=== PATIENT | female | born 1955 | race Caucasian/White ===

== ENCOUNTER 2024-01-08 20:01 | Inpatient (IN) | payer OTHER ==
[2024-01-08] MEDS ORDERED: predniSONE 20 MG TAB ONE (20:27)
[2024-01-08] MEDS ORDERED: ONDANSETRON 4 MG (ODT) TAB ONE (20:27)
[2024-01-08 20:47] LABS: Absolute Basophils 0.1 K/uL (0-0.5); Absolute Eosinophils 0.2 K/uL (0-0.5); Absolute Lymphocytes (CBC) 1.1 K/uL (0.7-4.9); Absolute Monocytes 0.5 K/uL (0.1-1.3); Absolute Neutrophil 7.1 K/uL (1.8-8.0); Basophils % 0.6 % (0-1.3); Eosinophils % 1.8 % (0-4.4); Hematocrit 41.9 % (36.0-45.0); Lymphocytes % 11.9 % (15.3-44.8); MCHC 33.3 g/dL (32.0-36.0); MCV 87.2 fL (80-100); MPV 7.3 fL (7.6-11.3); Monocytes % 5.7 % (3.3-12.3); Platelets 247 thou/uL (152-406); Red Cell Distribution Width 13.6 % (12.1-15.2)
[2024-01-08 21:14] LABS: Albumin/Globulin Ratio 1.3 (1.1-1.8); Anion Gap 8.2 mEq/L (5.0-15.0); Bilirubin Direct 0.2 mg/dL (0-0.2); Bilirubin Indirect, Calculated 0.1 mg/dL (0.2-0.8); Bilirubin Total 0.3 mg/dL (0.2-1.0); Globulin 3.2 g/dL (2.3-3.5); Magnesium 2.1 mg/dL (1.6-2.4); Potassium 4.2 mEq/L (3.5-5.1); Protein, Total 7.2 g/dL (6.4-8.2)
--- NOTE | 2024-01-08 21:16 | RAD REPORT ---
EXAM DESCRIPTION: RAD - Chest Single View - 01/08/2024 9:04 pm CLINICAL HISTORY: DYSPNEA COMPARISON: No comparisons FINDINGS: Lines: None. Lungs: No evidence of edema or pneumonia. Hyperinflated lungs . Pleural: No significant pleural effusions or pneumothorax. Cardiac: The heart size is within normal limits. Mediastinum: Within normal limits. Bones: No acute fractures. Other: Prominence of the ascending thoracic aorta likely from some ectasia . IMPRESSION: No acute cardiopulmonary disease. Hyperinflated lungs.
[2024-01-08 21:27] LABS: Troponin High Sensitivity 158.9 pg/mL (<58.9)
--- NOTE | 2024-01-08 22:02 | EDPHYS ---
Physician Documentation [facility] Name: Emilia Dominguez Age: 68 yrs Sex: Female : 1955 Arrival Date: 01/08/2024 Time: 20:01 Bed 6 Private MD: ED Physician Sergo Sánchez HPI: 01/07 21:21 This 68 yrs old Female presents to ER via EMS with complaints of Asthma Exacerbation. rt 21:21 Patient with history of asthma presents to the ED with reported asthma exacerbation rt starting this evening. The patient states that it caused her A panic attack. Patient did receive an albuterol treatment by EMS which she states has significantly improved her symptoms. Denies chest pain. Denies other acute complaints this time, symptoms are moderate in severity, no other aggravating or elevating factors.. Historical: - Allergies: 20:10 Levaquin; jm12 - PMHx: 20:10 Asthma; Anxiety; jm12 - PSHx: 20:10 None; jm12 - Immunization history:: Adult Immunizations up to date. - Infectious Disease History:: Denies. - Social history:: Smoking status: Patient denies any tobacco usage or history of. - Family history:: not pertinent. ROS: 21:21 Constitutional: Negative for fever, chills, and weight loss, Cardiovascular: Negative rt for chest pain, palpitations, and edema, Abdomen/GI: Negative for abdominal pain, nausea, vomiting, diarrhea, and constipation, MS/Extremity: Negative for injury and deformity, Skin: Negative for injury, rash, and discoloration, Neuro: Negative for headache, weakness, numbness, tingling, and seizure, 21:21 Respiratory: Positive for cough, shortness of breath, wheezing, Exam: 21:21 Constitutional: This is a well developed, well nourished patient who is awake, alert, rt and in no acute distress. Head/Face: Normocephalic, atraumatic. Chest/axilla: Normal chest wall appearance and motion. Nontender with no deformity. No lesions are appreciated. Cardiovascular: Regular rate and rhythm with a normal S1 and S2. No gallops, murmurs, or rubs. Normal PMI, no JVD. No pulse deficits. Abdomen/GI: Soft, non-tender, with normal bowel sounds. No distension or tympany. No guarding or rebound. No evidence of tenderness throughout. Skin: Warm, dry with normal turgor. Normal color with no rashes, no lesions, and no evidence of cellulitis. MS/ Extremity: Pulses equal, no cyanosis. Neurovascular intact. Full, normal range of motion. Neuro: Awake and alert, GCS 15, oriented to person, place, time, and situation. Cranial nerves II-XII grossly intact. Motor strength 5/5 in all extremities. Sensory grossly intact. Cerebellar exam normal. Normal gait. 21:21 ECG was reviewed by the Attending Physician. 21:21 Respiratory: Faint wheezes heard on all lung curran, no respiratory distress, Vital Signs: 20:09 BP 141 / 78; Pulse 76; Resp 18; Temp 98.2; Pulse Ox 100% ; Weight 40.37 kg; Height 5 jm12 ft. 6 in. ; Pain 0/10; 21:27 BP 119 / 63; Pulse 77; Resp 16; Pulse Ox 91% ; 12 22:07 BP 119 / 81; Pulse 76; Resp 18; Temp 98.2; Pulse Ox 95% ; 12 20:09 Body Mass Index 14.36 (40.37 kg, 167.64 cm) [facility] 20:09 Pain Scale: Adult 12 MDM: 20:14 Patient medically screened. rt 22:23 Differential diagnosis: Asthma, pneumonia, bronchospasm, ACS. Data reviewed: vital rt signs, nurses notes, lab test result(s), EKG, radiologic studies. Consideration of Admission/Observation Patient was admitted/placed on observation. Management of patient was discussed with the following: Hospitalist: Agrees to admit. I considered the following discharge prescriptions or medication management in the emergency department Medications were administered in the Emergency Department. See MAR. Independent interpretation of the following test(s) in the Emergency Department X-Ray: My interpretation is No pneumonia seen on interpretation of x-ray images. Test considered but Not performed: CT: Do not suspect pulmonary embolism, CT angiogram not indicated. Care significantly affected by the following chronic conditions: Asthma. Counseling: I had a detailed discussion with the patient and/or guardian regarding the historical points, exam findings, and any diagnostic results supporting the discharge/admit diagnosis, lab results, radiology results, the need for further work-up and treatment in the hospital. Response to treatment: the patient's symptoms have markedly improved after treatment. 01/07 20:21 Order name: Basic Metabolic Panel; Complete Time: : rt 01/07 20:21 Order name: CBC with Diff; Complete Time: : rt 01/07 20:21 Order name: LFT's; Complete Time: :28 rt 01/07 20:21 Order name: Magnesium; Complete Time: :28 rt 01/07 20:21 Order name: NT PRO-BNP; Complete Time: : rt 01/07 20:21 Order name: Troponin HS; Complete Time: : rt 01/08 04:47 Order name: Troponin High Sensitivity; Complete Time: 06:27 EDMS 01/08 05:40 Order name: Lipid Profile; Complete Time: 06: EDMS 01/08 06:10 Order name: Hemoglobin A1c; Complete Time: : EDMS 01/07 20:21 Order name: XRAY Chest (1 view); Complete Time: 21: rt 01/07 20:21 Order name: Cardiac monitoring; Complete Time: 20: rt 01/07 20:21 Order name: EKG - Nurse/Tech; Complete Time: 20:32 rt 01/07 20:21 Order name: IV Saline Lock; Complete Time: 21:00 rt 01/07 20:21 Order name: Labs collected and sent; Complete Time: 21:00 rt 01/07 20:21 Order name: O2 Per Protocol; Complete Time: 20: rt 01/07 20:21 Order name: O2 Sat Monitoring; Complete Time: 20:22 rt EC: Rate is 81 beats/min. Rhythm is regular, Normal Sinus Rhythm with No ectopy, LVH. Left rt axis deviation noted. LA interval is normal. QRS interval is normal. QT interval is normal. No Q waves. T waves are Normal. No ST changes noted. Interpreted by me. Administered Medications: 20:32 Drug: predniSONE PO 40 mg PO once Route: PO; tm6 20:32 Drug: Ondansetron Oral Disintegrating Tablet Oral Disintegrating Tablet 4 mg PO once tm6 Route: PO; 22:18 Drug: Aspirin PO 325 mg PO once Route: PO; tm6 22:18 Drug: Enoxaparin Sub-Q 1 mg/kg Sub-Q once Route: Sub-Q; Site: right lower abdomen; tm6 Disposition: 22:23 Critical Care:. rt Disposition Summary: 01/08/24 22:01 Hospitalization Ordered Notes: Hospitalization Status: Observation rt Provider: Prince Zoey rt Condition: Stable rt Problem: new rt Symptoms: have improved rt Bed/Room Type: Standard rt Location: Telemetry/MedSurg (observation)(01/09/24 07:14) jaDeja Room Assignment: 228(01/09/24 07:14) ja Diagnosis - Dyspnea rt - elevated troponin rt Forms: - Medication Reconciliation Form rt - SBAR form rt - Leadership Thank You Letter rt Critical care time excluding procedures: 22:23 Critical care time: Bedside Care: 30 minutes, Consultation: 5 minutes. Total time: 35 rt minutes Signatures: Dispatcher [employer] EDMS Anais Stuart Cindy, GILBERTO MACIAS cg Teddy Castellon RN RN ja1 Sergo Sánchez MD MD rt Dangelo Freeman RN RN tm6 Maureen Chaudhry RN RN jm12 Corrections: (The following items were deleted from the chart) 20:22 20:22 Chest Single View+RAD.RAD.BRZ ordered. EDMS EDMS 22:02 22:01 rt sp 22:39 22:02 221 sp cg 22:46 22:01 Telemetry/MedSurg (observation) rt cg 22:46 22:39 cg cg 01/08 07:14 01/07 22:46 [facility] ER HOLD cg ja1 01/08 07:14 01/07 22:46 ERHOLD- cg ja1
--- NOTE | 2024-01-08 22:02 | ER ---
Nurse's Notes [facility] Name: Emilia Dominguez Age: 68 yrs Sex: Female : 1955 Arrival Date: 01/08/2024 Time: 20:01 Bed 6 Private MD: Diagnosis: Dyspnea;elevated troponin Presentation: 01/07 20:09 Chief complaint: Patient states: shortness of breath. Coronavirus screen: Client denies [facility] travel out of the [place] in the last 14 days. At this time, the client does not indicate any symptoms associated with coronavirus-19. Ebola Screen: No symptoms or risks identified at this time. Initial Sepsis Screen: Does the patient meet any 2 criteria? No. Patient's initial sepsis screen is negative. Does the patient have a suspected source of infection? No. Patient's initial sepsis screen is negative. Risk Assessment: Do you want to hurt yourself or someone else? Patient reports no desire to harm self or others. Onset of symptoms was January 08, 2024. 20:09 Method Of Arrival: EMS: [facility] 20:09 Acuity: [place] 3 [facility] Triage Assessment: 20:10 General: Appears distressed, Behavior is calm, cooperative. Pain: Denies pain. [facility] Historical: - Allergies: 20:10 Levaquin; 12 - PMHx: 20:10 Asthma; Anxiety; [facility] - PSHx: 20:10 None; jm12 - Immunization history:: Adult Immunizations up to date. - Infectious Disease History:: Denies. - Social history:: Smoking status: Patient denies any tobacco usage or history of. - Family history:: not pertinent. Screenin/22 00:03 [facility] ED Fall Risk Assessment (Adult) History of falling in the last 3 months, tm6 including since admission No falls in past 3 months (0 pts) Confusion or Disorientation No (0 pts) Intoxicated or Sedated No (0 pts) Impaired Gait No (0 pts) Mobility Assist Device Used No (0 pt) Altered Elimination No (0 pt) Score/Fall Risk Level 0 - 2 = Low Risk Oriented to surroundings, Maintained a safe environment, Educated pt \T\ family on fall prevention, incl call for assistance when getting out of bed. Abuse screen: Denies threats or abuse. Denies injuries from another. Nutritional screening: No deficits noted. Tuberculosis screening: No symptoms or risk factors identified. Assessment: 01/07 20:12 Neuro: No deficits noted. Cardiovascular: No deficits noted. Respiratory: Respiratory [facility] effort is labored, using tripod position, Respiratory pattern is Breath sounds with wheezes bilaterally. Onset: The symptoms/episode began/occurred the patient has moderate shortness of breath. Vital Signs: 20:09 BP 141 / 78; Pulse 76; Resp 18; Temp 98.2; Pulse Ox 100% ; Weight 40.37 kg; Height 5 12 ft. 6 in. ; Pain 0/10; 21:27 BP 119 / 63; Pulse 77; Resp 16; Pulse Ox 91% ; jm12 22:07 BP 119 / 81; Pulse 76; Resp 18; Temp 98.2; Pulse Ox 95% ; 12 20:09 Body Mass Index 14.36 (40.37 kg, 167.64 cm) 12 20:09 Pain Scale: Adult [facility] ED Course: 20:08 Patient arrived in ED. jm12 20:09 Sergo Sánchez MD is Attending Physician. rt 20:10 Triage completed. jm12 20:12 No provider procedures requiring assistance completed. tm6 20:12 Patient has correct armband on for positive identification. Placed in gown. Bed in low tm6 position. Call light in reach. Side rails up X 1. Provided Education on: use of call morales. Client placed on continuous cardiac and pulse oximetry monitoring. NIBP monitoring applied. instruction assistant principal on. Pulse ox on. NIBP on. Door closed. Noise minimized. Warm blanket given. 20:12 Arm band placed on right wrist. tm6 20:31 Dangelo Freeman, GILBERTO is Primary Nurse. tm6 20:32 EKG done, by ED staff, reviewed by Sergo Sánchez MD. tm6 20:44 Inserted saline lock: 20 gauge in left antecubital area, using aseptic technique. Blood kj2 collected. 21:06 XRAY Chest (1 view) In Process Unspecified. EDMS 22:00 Prince Greer MD is Hospitalizing Provider. rt 01/08 00:05 Patient admitted, IV remains in place. tm6 Administered Medications: 01/07 20:32 Drug: predniSONE PO 40 mg PO once Route: PO; tm6 20:32 Drug: Ondansetron Oral Disintegrating Tablet Oral Disintegrating Tablet 4 mg PO once tm6 Route: PO; 22:18 Drug: Aspirin PO 325 mg PO once Route: PO; tm6 22:18 Drug: Enoxaparin Sub-Q 1 mg/kg Sub-Q once Route: Sub-Q; Site: right lower abdomen; tm6 Medication: 01/08 00:05 VIS not applicable for this client. tm6 Outcome: 01/07 22:01 Decision to Hospitalize by Provider. rt 01/08 00:04 Admitted to ER Hold. Please see [facility] for further documentation. tm6 Condition: stable Instructed on the need for admit, 09:00 Patient left the ED. ko1 Signatures: Dispatcher [employer] EDMS Tamara Hernandez RN RN ko1 Sergo Sánchez MD MD rt Dangelo Freeman RN RN tm6 Tricia Burgos RN RN kj2 Maureen Chaudhry RN RN jm12
[2024-01-08] MEDS ORDERED: ASPIRIN EC 325 MG TABLET PO ONE (22:12)
[2024-01-08] MEDS ORDERED: ENOXAPARIN 40 MG/0.4 ML SQ ONE (22:12)
--- NOTE | 2024-01-08 22:20 | P.HP ---
Certification for Inpatient Patient admitted to: Observation With expected LOS: <2 Midnights Practitioner: I am a practitioner with admitting privileges, knowledge of patient current condition, hospital course, and medical plan of care. Services: Services provided to patient in accordance with Admission requirements found in Title 42 Section 412.3 of the Code of Federal Regulations Patient History Date of Service: 01/08/24 Reason for admission: dyspnea History of Present Illness: Marta is a 68-year-old female with a past medical history of anxiety and lack of smoking. She presented to the ER complaining of acutely worsening dyspnea. Patient lives in the [facility] and is currently living locally with son after sustaining an ankle fracture earlier last month. She feels that her fracture has been healing well. She has a history of occasional shortness of breath, which she feels is a result of anxiety. The symptoms, however, were slightly different. Workup in ER revealed negative chest x-ray. Troponin was elevated at 158. At the time of my evaluation, she was on supplemental oxygen and speaking without respiratory distress. Physical Examination - Physical Exam General: Alert HEENT: Atraumatic, Normocephalic Neck: Supple Respiratory: Clear to auscultation bilaterally Cardiovascular: No edema, Normal pulses, Regular rate/rhythm, Normal S1 S2 Neurological: Normal speech, Sensation intact - Studies Laboratory Data (last 24 hrs) 01/08/24 01/08/24 20:40 20:40 WBC 8.90 Hgb 14.0 Hct 41.9 Plt Count 247 Sodium 135 L Potassium 4.2 BUN 18 Creatinine 0.77 Glucose 106 Magnesium 2.1 Total Bilirubin 0.3 AST 25 ALT 24 Alkaline Phosphatase 102 Assessment and Plan - Problems (Diagnosis) (1) Acute hypoxemic respiratory failure Current Visit: Yes Status: Acute (2) NSTEMI (non-ST elevated myocardial infarction) Current Visit: Yes Status: Acute (3) Anxiety Current Visit: Yes Status: Acute - Plan Asthma Patient 68-year-old female with a past medical history of tobacco smoking and, asthma and anxiety. She is being admitted after she presented with acute shortness of breath. Her chest x-ray is negative. She has elevated troponin 158. Acute hypoxemic respiratory failure Asthma, possibly exacerbation NSTEMI Tobacco smoking Anxiety PLAN: Admit under observation with telemetry Possible asthma exacerbation. Solu-Medrol, DuoNeb and Dulera Elevated troponin. Started FD loveox, obtain a 2D echo, lipid panel and HbA1c. Non-urgent cardiology consult. Trend trop CTA chest to r/o PE given hx of recent fracture. - Advance Directives Does patient have a Living Will: No Does patient have a Durable POA for Healthcare: No
[2024-01-08] MEDS: METHYLPREDNISOLONE 40 MG INJ IV SCH (23:00)
[2024-01-08] MEDS: DULERA 200/5 (MOMETASONE/FORMOTEROL) INHALER IH SCH (23:30)
[2024-01-09] MEDS ORDERED: ALBUTEROL 2.5 MG/3 ML NEB SOL ONE ×2 (01:27→07:12)
[2024-01-09] MEDS ORDERED: IPRATROPIUM BROM 0.5MG/2.5ML ONE ×2 (01:27→07:12)
[2024-01-09] MEDS: IPRATROPIUM BROM 0.5MG/2.5ML NEB SCH (01:30)
[2024-01-09] MEDS: ALBUTEROL 2.5 MG/3 ML NEB SOL NEB SCH (01:30)
[2024-01-09] MEDS ORDERED: METHYLPREDNISOLONE 40 MG INJ ONE ×2 (02:46→08:38)
[2024-01-09] MEDS: clonazePAM 0.5 MG TAB PO SCH ×2 (04:24→22:11)
[2024-01-09] MEDS ORDERED: ALBUTEROL INHALER 200 PUFF/6.7 GM IH SCH (04:30)
[2024-01-09 04:47] LABS: Troponin High Sensitivity 817.3 pg/mL (<58.9)
--- NOTE | 2024-01-09 06:52 | P.PN ---
Date of Service: 01/09/24 Subjective: Reports shortness of breath last night, improving Denies active chest pain this morning Reports history of asthma, smoking history Has never been diagnosed with COPD, never had pulmonary function test per patient Reports long history of of anxiety/panic attacks, and states this is hard to differentiate between her "asthma" versus panic attack Patient seen while undergoing echocardiogram ROS: 10 point ROS as noted above, otherwise negative Physical Exam: GEN: Alert, oriented, NAD HEENT: Normal conjunctiva, sclera anicteric CV: Regular rate and rhythm, no edema Pulm: Nonlabored respirations on room air, mild wheeze ABD: Soft, nontender, nondistended Neuro: Normal speech, normal affect vitals reviewed Problem List: Acute hypoxemic respiratory failure likely secondary to acute on chronic COPD exacerbation NSTEMI Anxiety tobacco dependance Acute hypoxemic respiratory failure likely secondary to acute on chronic COPD exacerbation Reports history of asthma. Never had pulmonary function testing CT with emphysematous appearance felt significant improvement of her breathing with albuterol per EMS. Placed on supplementation oxygen in ED, now breathing more comfortably on room air. But has not ambulated CTA chest (01/07): moderate diffuse centrilobular emphysema with hyperinflation. +Scattered nonocclusive secretions in central/peripheral airways. No focal inf iltrate. continue solu-medrol, duonebs Consult pulmonology NSTEMI trend troponins until peak - 158 -> 817 Monitor on telemetry Cardiology consulted Echo ordered to eval EF / stenosis NPO for LHC today per cardio start asa Anxiety confirm home meds, restart as appropriate klonopin PRN tobacco dependance cessation advised. VTE: Lovenox Code: DNR Dispo: Home, ~1 day Pending cardiac cath / recs Time Spent Managing Pts Care (In Minutes): 40
[2024-01-09] MEDS: FLUOXETINE 20 MG CAP PO SCH (09:14)
[2024-01-09] MEDS: CETIRIZINE HCL 5 MG TABLET PO SCH (09:14)
[2024-01-09] MEDS: ENOXAPARIN 40 MG/0.4 ML SQ SCH (09:14)
--- NOTE | 2024-01-09 10:23 | P.CNS ---
Date of Consult: 01/09/24 Chief Complaint: dyspnea History of Present Illness: Patient with PMH of Asthma, tobacco use, panic attacks, presented with with bad panic attack yesterday that was associated with chest pressure and SOB, chest pain is pressure in nature, mid chest, no radiation, last for few minutes has been going on for few months. no palpitations, no syncope. Allergies levofloxacin [From Levaquin] Allergy (Verified 01/08/24 23:13) Itching Home Medications: Albuterol Inhaler [Ventolin Inhaler*] 1 puff PRN 01/09/24 Cetirizine HCl [Zyrtec] 1 tab PO DAILY 01/09/24 Fluoxetine HCl [Prozac] 1 tab PO DAILY 01/09/24 clonazePAM [Klonopin] 1 tab PO PRN PRN 01/09/24 - Social History Place of Residence: Home Review of Systems 10-point ROS is otherwise unremarkable Physical Examination Temp Pulse Resp BP Pulse Ox 98.3 F 89 14 122/59 L 96 01/09/24 09:05 01/09/24 09:05 01/09/24 09:05 01/09/24 09:05 01/09/24 09:05 General: Alert, In no apparent distress HEENT: Atraumatic, PERRLA, Mucous membr. moist/pink, EOMI, Sclerae nonicteric Neck: Supple, 2+ carotid pulse no bruit, No LAD, Without JVD or thyroid abnormality Respiratory: Clear to auscultation bilaterally, Normal air movement Cardiovascular: Regular rate/rhythm, Normal S1 S2 Gastrointestinal: Normal bowel sounds, No tenderness Musculoskeletal: No tenderness Integumentary: No rashes Neurological: Normal gait, Normal speech, Normal tone, Normal affect Lymphatics: No axilla or inguinal lymphadenopathy Laboratory Data (last 24 hrs) 01/08/24 01/08/24 20:40 20:40 WBC 8.90 Hgb 14.0 Hct 41.9 Plt Count 247 Sodium 135 L Potassium 4.2 BUN 18 Creatinine 0.77 Glucose 106 Magnesium 2.1 Total Bilirubin 0.3 AST 25 ALT 24 Alkaline Phosphatase 102 - Problems (1) NSTEMI (non-ST elevated myocardial infarction) Current Visit: Yes Status: Acute Plan: will get coronary angiogram today. get echo continue ASA 81 mg daily (2) Tobacco abuse Current Visit: Yes Status: Acute Plan: counseled about cessation (3) Asthma Current Visit: Yes Status: Acute Plan: continue steroids and inhalers.
[2024-01-09 12:27] LABS: Troponin High Sensitivity 550.7 pg/mL (<58.9)
--- NOTE | 2024-01-09 12:39 | RAD REPORT ---
EXAM DESCRIPTION: CT - Chest For Pe Angio - 01/09/2024 7:30 am CLINICAL HISTORY: 68 years Female r/o pe TECHNIQUE: Contiguous axial images obtained through the chest were obtained from the thoracic inlet to the level of the upper abdomen during the pulmonary arterial phase of intravenous contrast adminis tration. Coronal and sagittal reformatted and multiplanar MIP images provided. This CT exam was performed according to our departmental dose-optimization program, which includes on e or more of the following dose reduction techniques: automated exposure control, adjustment of the m A and/or kV according to patient size, and/or use of iterative reconstruction technique. COMPARISON: Chest radiograph dated 06/06/2019 FINDINGS: There is no pulmonary embolus. There is atherosclerosis without thoracic aortic aneurysm or dissection. The heart is normal in size without pericardial effusion. There is moderate diffuse centrilobular emphysema throughout both lungs with hyperinflation. No focal airspace infiltrate, pleural effusion, or pneumothorax. Scattered nonocclusive secretions in the dae tral and peripheral airways. There are no visualized acute osseous or upper abdominal abnormalities. Patient is cachectic. IMPRESSION: No pulmonary embolus. Moderate diffuse centrilobular emphysema with hyperinflation. Scattered nonocclusive secretions in th e central and peripheral airways. No focal airspace infiltrate. Electronically signed by: Lu Bailey MD 01/08/2024 11:51 PM CDT RP Due to temporary technical issues with the PACS/Fluency reporting system, reports are being signed by the in house radiologist without review as a courtesy to ensure prompt reporting. The interpreting r adiologist is fully responsible for the content of the report.
--- NOTE | 2024-01-09 13:32 | ECHO ---
HEIGHT: 5 ft 6 in WEIGHT: 89 lb 0 oz DATE OF STUDY: 01/09/[address]: Prince Lanie Greer MD 2-DIMENSIONAL: YES M.MODE: YES DOPPLER: YES COLOR FLOW: YES TDS: PORTABLE: YES DEFINITY: BUBBLE STUDY: DIAGNOSIS: NON ST ELEVATION MYOCARDIAL INFARCTION CARDIAC HISTORY: CATHERIZATION: SURGERY: PROSTHETIC VALVE: PACEMAKER: MEASUREMENTS (cm) DIASTOLIC (NORMALS) SYSTOLIC (NORMALS) IVSd 0.9 (0.6-1.2) LA Diam (1.9-4.0) LVEF 60-65% LVIDd 3.5 (3.5-5.7) LVIDs 2.2 (2.0-3.5) %FS 37% LVPWd 0.7 (0.6-1.2) Ao Diam 2.7 (2.0-3.7) 2 DIMENSIONAL ASSESSMENT: RIGHT ATRIUM: NORMAL LEFT ATRIUM: NORMAL RIGHT VENTRICLE: NORMAL LEFT VENTRICLE: NORMAL TRICUSPID VALVE: NORMAL MITRAL VALVE: NORMAL PULMONIC VALVE: NORMAL AORTIC VALVE: MILD AORTIC REGURGITATION PERICARDIAL EFFUSION: NONE AORTIC ROOT: NORMAL LEFT VENTRICULAR WALL MOTION: NORMAL DOPPLER/COLOR FLOW: NORMAL COMMENTS: 1. NORMAL LEFT VENTRICULAR SYSTOLIC FUNCTION, EJECTION FRACTION 60-65%, NORMAL WALL MOTION 2. NORMAL DIASTOLIC FUNCTION 3. MILD AORTIC REGURGITATION TECHNOLOGIST: EZEQUIEL SANCHEZ
[2024-01-09] MEDS: NA CHLORIDE 0.9% 500 ML ONE (14:44)
[2024-01-09] MEDS ORDERED: HEPA 1000U/500MLS 2,000 UNIT/1,000 ML BAG IV ONE (15:05)
[2024-01-09] MEDS ORDERED: MIDAZOLAM HCL 2 MG/2 ML INJ ONE (15:06)
[2024-01-09] MEDS ORDERED: LIDOCAINE 1% 20 ML MDV ONE (15:06)
[2024-01-09] MEDS ORDERED: VERAPAMIL HCL 10 MG/4 ML VIAL IV ONE (15:06)
[2024-01-09] MEDS ORDERED: HEPARIN 5000 UNIT/ML 1 ML VIAL ONE (15:07)
[2024-01-09] MEDS ORDERED: FENTANYL CITR 100 MCG/2 ML ONE (15:07)
[2024-01-09] MEDS ORDERED: HEPARIN 10,000 UNIT/10 ML VIAL IV ONE (15:07)
[2024-01-09] MEDS ORDERED: TICAGRELOR 90 MG TABLET PO ONE (15:07)
[2024-01-09] MEDS ORDERED: ATROPINE SULF 1 MG/10 ML SYR IV ONE (15:07)
[2024-01-09] MEDS ORDERED: ASPIRIN 325 MG TAB ONE (15:08)
--- NOTE | 2024-01-09 16:30 | EKG ---
Test Date: 2024-01-08 Test Time: 20:27:15 Ceo Ziff Davis: DENISE MEASUREMENT RESULTS: Intervals: Rate: 81 GA: 142 QRSD: 76 QT: 396 QTc: 460 [place]: P: -25 GA: 142 QRS: -25 T: -22 INTERPRETIVE STATEMENTS: Normal sinus rhythm Voltage criteria for left ventricular hypertrophy Abnormal ECG No previous ECG available for comparison Electronically Signed On 01-09-24 16:28:31 CDT by Ed Sims
--- NOTE | 2024-01-09 16:32 | OP ---
Date of Procedure: 01/09/2024 Surgeon: PARVEZ SAENZ Procedures Performed: 1.Selective coronary angiogram. 2.Left heart catheterization. Indication: [id number] myocardial infarction. Access: Right radial artery 6-Omani closed with TR band. Complications: None. Bleeding: Less than 50 mL. Anesthesia: Total sedation time was 30 minutes. Description Of Procedure: After risks, benefits, and alternatives were explained, the patient agreed to procedure and signed informed consent. The [facility], prepped and draped in usual sterile fashion. Then, I accessed right radial artery using pedi atric micropuncture kit, placed a 6-Omani Slender sheath and took 5-Omani [place] 4.0 catheter into t he aortic root over a J-wire across the aortic valve, measured the LVEDP. Pullback did not record an y significant gradient, and then engaged the left main, took standard views and then on the RCA, took standard views and then removed the catheter and the sheath. We placed TR band with good hemostasis . Findings: 1.Left main; large and normal. 2.LAD; large vessel. Proximal segment is normal. Mid segment focal 30%. Distally, there is a diff use 20% stenosis. Diagonal branch has luminal irregularities. 3.Left circumflex; it is large sized vessel with the proximal 40%. Rest of it is normal. 4.RCA; moderate size, has 40% in the mid to distal diffuse 50% stenosis. 5.LVEDP is normal at 10 mmHg. Conclusion: 1.Mild to moderate coronary artery disease. 2.Borderline LVEDP at 10 mmHg. Plan: Medical management. SR/MODL Voice ID: [id number] Report ID: [id number]
[2024-01-10 06:07] LABS: Absolute Lymphocytes (CBC) 0.5 K/uL (0.7-4.9); Absolute Monocytes 0.2 K/uL (0.1-1.3); Absolute Neutrophil 6.8 K/uL (1.8-8.0); Basophils % 0.1 % (0-1.3); Hematocrit 37.6 % (36.0-45.0); Hemoglobin 12.8 g/dL (12.0-15.0); MCH 29.6 pg (27.0-35.0); MCHC 33.9 g/dL (32.0-36.0); MCV 87.2 fL (80-100); MPV 7.2 fL (7.6-11.3); Monocytes % 2.5 % (3.3-12.3); Neutrophils % 90.4 % (41.7-73.7); Platelets 258 thou/uL (152-406); RBC Red Blood Cell Count 4.31 M/uL (3.86-4.86); Red Cell Distribution Width 13.5 % (12.1-15.2)
[2024-01-10 07:27] LABS: Anion Gap 7.1 mEq/L (5.0-15.0); Magnesium 2.8 mg/dL (1.6-2.4); Potassium 5.1 mEq/L (3.5-5.1)
[2024-01-10] MEDS: ONDANSETRON 4 MG/2 ML VIAL IV PRN (07:46)
[2024-01-10 08:44] LABS: Platelet Estimate ADEQ; White Blood Cell Scan OK (OK)
[2024-01-10 08:45] LABS: Blood Morphology Comment NOT SEEN (NOT SEEN)
--- NOTE | 2024-01-10 11:02 | P.DS ---
Admission Date: 01/08/24 Discharge Date: 01/10/24 Disposition: ROUTINE DISCHARGE Discharge Condition: GOOD Reason for Admission: dyspnea Brief History of Present Illness: 68-year-old female with a past medical history of anxiety and smoking presented to the ER complaining of acutely worsening dyspnea. Patient lives in the [facility] and is currently living locally with son after sustaining an ankle fracture earlier last month. She has a history of occasional shortness of breath, which she feels is a result of anxiety. The symptoms, however, were slightly different. Workup in ER revealed negative chest x-ray. Troponin was elevated at 158. At the time of my evaluation, she was on supplemental oxygen and speaking without respiratory distress. Patient was hospitalized for further management. Hospital Course: Diagnosis Acute hypoxemic respiratory failure likely secondary to acute on chronic COPD exacerbation. Anxiety tobacco dependance . Severe protein calorie malnutrition. Patient was admitted to the medical floor and the following medical problems addressed: Acute hypoxemic respiratory failure likely secondary to acute on chronic COPD exacerbation Patient reports history of asthma. Never had pulmonary function testing CT with emphysematous appearance Patient's symptoms significantly improved with steroids and bronchodilators. Initially needed oxygen supplementation. Patient was weaned off oxygen and had good oxygen saturation. Pulmonary Dr. Poe evaluated patient and assisted with management. Patient placed on long-acting beta-sina and inhaled steroid. She has clinically improved and deemed stable for discharge. NSTEMI trend troponins until peak - 158 -> 817 Monitor on telemetry Cardiology evaluated patient. Left heart catheterization done which showed mild coronary artery disease and no indication for percutaneous intervention. Echo done showed normal EF and unremarkable.. Patient started on aspirin. Anxiety klonopin PRN tobacco dependance cessation advised. Vital Signs/Physical Exam: Temp Pulse Resp BP Pulse Ox 98.3 F 71 18 134/61 92 01/10/24 08:00 01/10/24 08:00 01/10/24 08:00 01/10/24 08:00 01/10/24 08:00 General: Alert, In no apparent distress, Oriented x3, Other (Cachectic) HEENT: Mucous membr. moist/pink, Sclerae nonicteric Neck: Supple, JVD not distended Respiratory: Clear to auscultation bilaterally, Diminished (Diffuse diminished breath sounds.) Cardiovascular: No edema, Regular rate/rhythm Gastrointestinal: Normal bowel sounds, Soft and benign, Non-distended Musculoskeletal: No swelling Integumentary: No rashes, No cyanosis Neurological: Normal strength at 5/5 x4 extr Laboratory Data at Discharge: WBC 7.50 thou/uL (4.3-10.9) 01/10/24 05:44 Hgb 12.8 g/dL (12.0-15.0) 01/10/24 05:44 Hct 37.6 % (36.0-45.0) 01/10/24 05:44 Plt Count 258 thou/uL (152-406) 01/10/24 05:44 Sodium 134 mEq/L (136-145) L 01/10/24 05:44 Potassium 5.1 mEq/L (3.5-5.1) D 01/10/24 05:44 BUN 20 mg/dL (7-18) H 01/10/24 05:44 Creatinine 0.76 mg/dL (0.55-1.02) 01/10/24 05:44 Glucose 147 mg/dL (74-106) H 01/10/24 05:44 Magnesium 2.8 mg/dL (1.6-2.4) H 01/10/24 05:44 Total Bilirubin 0.3 mg/dL (0.2-1.0) 01/08/24 20:40 AST 25 U/L (15-37) 01/08/24 20:40 ALT 24 U/L (13-56) 01/08/24 20:40 Alkaline Phosphatase 102 U/L (45-117) 01/08/24 20:40 Triglycerides Cancelled 01/09/24 Unknown Cholesterol Cancelled 01/09/24 Unknown HDL Cholesterol Cancelled 01/09/24 Unknown Cholesterol/HDL Ratio Cancelled 01/09/24 Unknown Home Medications: Albuterol Inhaler [Ventolin Inhaler*] 1 puff PRN 01/09/24 Cetirizine HCl [Zyrtec] 1 tab PO DAILY 01/09/24 Fluoxetine HCl [Prozac] 1 tab PO DAILY 01/09/24 Aspirin Chewable [Aspirin Chewable*] 81 mg PO DAILY #30 tab.chew 01/10/24 Atorvastatin Calcium [Lipitor] 40 mg PO BEDTIME #30 tab 01/10/24 Mometasone/Formoterol [Dulera 200 Mcg/5 Mcg Inhaler] 2 puff IH BIDRESP #1 inhaler 07/23/24 clonazePAM [Klonopin] 1 tab PO PRN PRN #10 tab 01/10/24 predniSONE [Prednisone*] 40 mg PO DAILY #8 tab 01/10/24 New Medications: Aspirin Chewable [Aspirin Chewable*] 81 mg PO DAILY #30 tab.chew Mometasone/Formoterol [Dulera 200 Mcg/5 Mcg Inhaler] 2 puff IH BIDRESP #1 inhal er clonazePAM [Klonopin] 1 tab PO PRN PRN #10 tab PRN Reason: Anxiety Atorvastatin Calcium [Lipitor] 40 mg PO BEDTIME #30 tab predniSONE [Prednisone*] 40 mg PO DAILY #8 tab Followup: Andrea Meléndez MD [ACTIVE - CAN ADMIT] - SHIRA SILVA [Primary Care Provider] - Ed Sims MD [ACTIVE - CAN ADMIT] - 1-2 Weeks Time spent managing pt's care (in minutes): 36
--- NOTE | 2024-01-10 12:23 | P.PN ---
Subjective Date of Service: 01/10/24 Chief Complaint: dyspnea Subjective: No new changes, No C/O voiced, Tolerating diet, Ambulating, Improving Review of Systems 10-point ROS is otherwise unremarkable Physical Examination - Vital Signs Temperature: 98.3 F Blood Pressure: 134/61 Pulse: 71 Respirations: 18 Pulse Ox (%): 92 - Physical Exam General: Alert, In no apparent distress HEENT: Atraumatic, PERRLA, EOMI Neck: Supple, JVD not distended Respiratory: Clear to auscultation bilaterally, Normal air movement Cardiovascular: Regular rate/rhythm, Normal S1 S2 Gastrointestinal: Normal bowel sounds, No tenderness Musculoskeletal: No tenderness Integumentary: No rashes Neurological: Normal speech, Normal tone, Normal affect Lymphatics: No axilla or inguinal lymphadenopathy - Studies Medications List Reviewed: Yes Assessment And Plan - Current Problems (Diagnosis) (1) NSTEMI (non-ST elevated myocardial infarction) Current Visit: Yes Status: Acute Plan: coronary angiogram shows mild non obstructive CAD Echo shows normal EF continue ASA 81 mg daily (2) Tobacco abuse Current Visit: Yes Status: Acute Plan: counseled about cessation (3) Asthma Current Visit: Yes Status: Acute Plan: continue steroids and inhalers.
--- NOTE | 2024-01-10 12:51 | P.CNS ---
Date of Consult: 01/10/24 Reason for Consult: Possible underlying COPD Chief Complaint: dyspnea History of Present Illness: Patient is 68 years of age states that she has been having these panic attacks for the past 3-1/2 years where her lungs just shut down becomes very dyspneic patient is an active smoker no prior history of coronary artery disease uses albuterol at home that seems to help apparently was tried on Prozac that made her very doing much better Allergies levofloxacin [From Levaquin] Allergy (Verified 01/08/24 23:13) Itching Home Medications: Albuterol Inhaler [Ventolin Inhaler*] 1 puff PRN 01/09/24 Cetirizine HCl [Zyrtec] 1 tab PO DAILY 01/09/24 Fluoxetine HCl [Prozac] 1 tab PO DAILY 01/09/24 Aspirin Chewable [Aspirin Chewable*] 81 mg PO DAILY #30 tab.chew 01/10/24 Mometasone/Formoterol [Dulera 200 Mcg/5 Mcg Inhaler] 2 puff IH BIDRESP #1 inhaler 01/10/24 clonazePAM [Klonopin] 1 tab PO PRN PRN #10 tab 01/10/24 predniSONE [Prednisone*] 40 mg PO DAILY #8 tab 01/10/24 - Social History Place of Residence: Home Review of Systems 10-point ROS is otherwise unremarkable Physical Examination Temp Pulse Resp BP Pulse Ox 98.3 F 71 18 134/61 92 01/10/24 12:23 01/10/24 12:23 01/10/24 12:23 01/10/24 12:23 01/10/24 12:23 General: Alert, In no apparent distress, Oriented x3 Neck: Supple Respiratory: Clear to auscultation bilaterally, Diminished Cardiovascular: No edema, Regular rate/rhythm, Normal S1 S2 Gastrointestinal: Normal bowel sounds - Problems (1) COPD exacerbation Status: Acute Plan: Patient is 68 years of age I strongly suspect that she has underlying obstructive airways disease which is attributed to her anxiety and she has these attacks of shortness of breath with chest tightness. Patient does smoke 10 to 15 cigarettes a day has been doing so for a very long. Of time CT scan of the chest and chest x-ray reviewed all concerns consistent with severe obstructive pattern patient to be discharged on a long-acting bronchodilators including steroids follow-up with me in 2 to 4 weeks will need outpatient pulmonary function testing also patient has been counseled to avoid smoking and will need a low-dose CAT scan still the age of 78 patient was admitted with chest and non- STEMI has minimal coronary artery disease
[2024-01-12 14:56] VITALS: BP 134/61; TEMP 98.3; O2SAT 98; BMI 14.3
== END 2024-01-10 12:33 | disposition home or self-care (01) | DRG 280 ==
LOC: ER 20:01 → 2ND 21:50 → ERHOLD 22:42 → 2ND 01-09 07:28
PROVIDERS: ADMIT Internal Medicine; ATTEND Internal Medicine
PROC: 4A023N7 Measurement of Cardiac Sampling and Pressure, Left Heart, Percutaneous Approach (ICD-10-PCS; principal; 2024-01-09)
PROC: B2111ZZ Fluoroscopy of Multiple Coronary Arteries using Low Osmolar Contrast (ICD-10-PCS; 2024-01-09)
DX: I21.4 Non-ST elevation (NSTEMI) myocardial infarction (principal); E43 Unspecified severe protein-calorie malnutrition; J96.01 Acute respiratory failure with hypoxia; J45.901 Unspecified asthma with (acute) exacerbation; J44.1 Chronic obstructive pulmonary disease with (acute) exacerbation; Z68.1 Body mass index [BMI] 19.9 or less, adult; R64 Cachexia; J43.2 Centrilobular emphysema; F41.0 Panic disorder [episodic paroxysmal anxiety]; I25.10 Atherosclerotic heart disease of native coronary artery without angina pectoris; R79.89 Other specified abnormal findings of blood chemistry; Z66 Do not resuscitate; Z71.6 Tobacco abuse counseling; Z88.1 Allergy status to other antibiotic agents; Z79.82 Long term (current) use of aspirin; Z79.52 Long term (current) use of systemic steroids; Z79.899 Other long term (current) drug therapy
CPT/HCPCS: 36415; 71045; 71275; 76937; 80048; 80061; 80076; 83036; 83735; 83880; 84484; 85025; 93005; 93306; 93458; 94640; 96372; 99152; 99153; 99285; C1893; J0461; J1644; J1650; J2001; J2250; J2405; J2919; J3010; J3535; J7040; J7512; J7613; J7644; Q0162; Q9966; Q9967